=== PATIENT | female | born 1975 | race African-American/Black ===

== ENCOUNTER 2021-11-10 07:37 | Emergency (ER) | payer SELFPAY ==
[2021-11-10 09:04] LABS: SARS-COV-2 RT PCR NEGATIVE (NEGATIVE)
--- NOTE | 2021-11-10 09:11 | ER ---
Nurse's Notes [facility] Name: Maria Pappas Age: 46 yrs Sex: Female : 1975 Arrival Date: 11/10/2021 Time: 07:38 Bed 20 Private MD: Diagnosis: Acute upper respiratory infection, unspecified Presentation: 11/10 08:00 Chief complaint: Patient states: "Patient complain of body aches, chills all over for ag7 the last four days". Coronavirus screen: Client denies travel out of the [place] in the last 14 days. chills, cough unrelated to allergies, muscle pain, Client presents with at least one sign or symptom that may indicate coronavirus-19. Ebola Screen: No symptoms or risks identified at this time. Initial Sepsis Screen: Does the patient meet any 2 criteria? No. Patient's initial sepsis screen is negative. Does the patient have a suspected source of infection? No. Patient's initial sepsis screen is negative. Risk Assessment: Do you want to hurt yourself or someone else? Patient reports no desire to harm self or others. Onset of symptoms was November 06, 2021. 08:00 Method Of Arrival: Ambulatory ag7 08:00 Acuity: MARIO 4 ag7 Historical: - Allergies: 08:09 No Known Allergies; ag7 - Home Meds: 08:09 None [Active]; ag7 - PMHx: 08:09 None; ag7 - PSHx: 08:09 Cholecystectomy; ag7 - Immunization history:: Adult Immunizations up to date, Client reports receiving the 2nd dose of the Covid vaccine, Flu vaccine is not up to date. It has been more than one year since last vaccine. - Social history:: Smoking status: . Screenin:40 Abuse screen: Denies threats or abuse. Nutritional screening: No deficits noted. ag7 Tuberculosis screening: No symptoms or risk factors identified. Fall Risk None identified. Assessment: 08:11 General: Appears in no apparent distress. Behavior is calm, cooperative, appropriate ag7 for age, Reports chills for >3 days. Pain: Complains of pain in chest, abdomen, right arm, left arm, right leg, left leg, back of left arm, back of right arm, posterior chest, back of left leg, back of right leg and back Pain does not radiate. Pain currently is 8 out of 10 on a pain scale. Quality of pain is described as aching, Pain began 4 days Is continuous, Alleviated by nothing. Neuro: Level of Consciousness is awake, alert, obeys commands, Oriented to person, place, time, situation, Appropriate for age. Cardiovascular: Heart tones S1 S2 present. Respiratory: Airway is patent Breath sounds are clear bilaterally. EENT: Eyes are tearing on outer aspect of conjuctiva of right eye, iris of right eye, inner aspect of conjuctiva of right eye, outer aspect of conjuctiva of left eye, iris of left eye and inner aspect of conjunctiva of left eye Nares are clear with drainage noted Oral mucosa is moist. Good dentition noted. Throat is reddened Reports nasal congestion since 4days nasal discharge Patient reports "green color mucus from mouth". Vital Signs: 08:00 BP 141 / 77; Pulse 99 MON; Resp 16; Temp 98.5; Pulse Ox 99% on R/A; Weight 83.91 kg; ag7 Height 5 ft. 9 in. (175.26 cm); Pain 8/10; 09:42 BP 111 / 65; Pulse 93; Pulse Ox 100% on R/A; ag7 08:00 Body Mass Index 27.32 (83.91 kg, 175.26 cm) ag7 ED Course: 07:38 Patient arrived in ED. am2 07:40 [facility] oz 07:40 Lexa Barakat DO is Attending Physician. kb 08:00 Doris Lang, RN is Primary Nurse. ag7 08:04 Triage completed. ag7 08:09 COVID-19/FLU A+B (Document "Date of Onset" if Symptomatic) Sent. ag7 08:10 Arm band placed on right wrist. ag7 09:41 No provider procedures requiring assistance completed. ag7 09:41 Patient did not have IV access during this emergency room visit. ag7 09:41 Patient has correct armband on for positive identification. Bed in low position. Call ag7 light in reach. Administered Medications: No medications were administered Outcome: 09:10 Discharge ordered by . oz 09:41 Discharged to home ag7 09:41 Condition: stable 09:41 Discharge instructions given to patient. 09:43 Patient left the ED. ag7 Signatures: Cherri Conway FNP-C TREE WRAPPER-Ckb Daysi Egan am2 Doris Lang, RN RN ag7
--- NOTE | 2021-11-10 09:11 | EDPHYS ---
Physician Documentation [facility] Name: Maria Pappas Age: 46 yrs Sex: Female : 1975 Arrival Date: 11/10/2021 Time: 07:38 Bed 20 Private MD: ED Physician Lexa Barakat HPI: 11/10 08:20 This 46 yrs old Black Female presents to ER via Ambulatory with complaints of Cough, kb chills, bodyaches. 08:20 The patient or guardian reports cough, that is intermittent, described as mild, flu kb symptoms, myalgias. Onset: The symptoms/episode began/occurred 4 day(s) ago. Severity of symptoms: At their worst the symptoms were mild, in the emergency department the symptoms are unchanged. Modifying factors: The symptoms are alleviated by nothing, the symptoms are aggravated by nothing. Associated signs and symptoms: Pertinent positives: rhinorrhea, Pertinent negatives: chest pain, diarrhea, ear ache, fever, nausea, sore throat, vomiting. The patient has not experienced similar symptoms in the past. The patient has not recently seen a physician. Pt reports cough, runny nose, chills and bodyaches that started 4 days ago. States family member at home has the flu. Historical: - Allergies: 08:09 No Known Allergies; ag7 - Home Meds: 08:09 None [Active]; ag7 - PMHx: 08:09 None; ag7 - PSHx: 08:09 Cholecystectomy; ag7 - Immunization history:: Adult Immunizations up to date, Client reports receiving the 2nd dose of the Covid vaccine, Flu vaccine is not up to date. It has been more than one year since last vaccine. - Social history:: Smoking status: . ROS: 08:19 Cardiovascular: Negative for chest pain, palpitations, and edema. kb 08:19 Constitutional: Positive for body aches, chills, malaise, Negative for fatigue, fever, poor PO intake, weight loss. 08:19 ENT: Positive for rhinorrhea. 08:19 Respiratory: Positive for cough, Negative for dyspnea on exertion, hemoptysis, orthopnea, pleurisy, shortness of breath, sputum production, wheezing. 08:19 All other systems are negative. Exam: 08:19 Constitutional: This is a well developed, well nourished patient who is awake, alert, kb and in no acute distress. Head/Face: Normocephalic, atraumatic. ENT: Moist Mucous membranes Cardiovascular: Regular rate and rhythm with a normal S1 and S2. No gallops, murmurs, or rubs. No pulse deficits. Respiratory: Respirations even and unlabored. No increased work of breathing. Talking in full sentences Skin: Warm, dry with normal turgor. Normal color. MS/ Extremity: Pulses equal, no cyanosis. Neurovascular intact. Full, normal range of motion. Neuro: Awake and alert, GCS 15, oriented to person, place, time, and situation. Moves all extremities. Normal gait. Psych: Awake, alert, with orientation to person, place and time. Behavior, mood, and affect are within normal limits. Vital Signs: 08:00 BP 141 / 77; Pulse 99 MON; Resp 16; Temp 98.5; Pulse Ox 99% on R/A; Weight 83.91 kg; ag7 Height 5 ft. 9 in. (175.26 cm); Pain 8/10; 09:42 BP 111 / 65; Pulse 93; Pulse Ox 100% on R/A; ag7 08:00 Body Mass Index 27.32 (83.91 kg, 175.26 cm) ag7 MDM: 07:41 Patient medically screened. kb 08:19 Data reviewed: vital signs, nurses notes. Data interpreted: Pulse oximetry: on room air kb is 99 %. Interpretation: normal. 09:10 Counseling: I had a detailed discussion with the patient and/or guardian regarding: the kb historical points, exam findings, and any diagnostic results supporting the discharge/admit diagnosis, lab results, the need for outpatient follow up, a family practitioner, to return to the emergency department if symptoms worsen or persist or if there are any questions or concerns that arise at home. 11/10 07:41 Order name: COVID-19/FLU A+B (Document "Date of Onset" if Symptomatic); Complete Time: kb 09:10 Administered Medications: No medications were administered Disposition: 07:53 Attestation: The patient's history, exam findings, diagnostics, and a summary of any ms3 interventions or procedures was reviewed in detail with Cherri ZELAYA 46-year-old female presents for chills and myalgias began last night. On exam patient is alert and oriented x4, in no apparent distress. Heart rate rhythm are regular without murmurs rubs or gallops. Lungs clear to auscultation bilaterally. Abdomen nontender palpation. Skin is without rashes or diaphoresis. Discussed case with Yuliet Conway, nurse practitioner, and agree with plan.. 19:28 Co-signature as Attending Physician, Lexa Barakat DO I agree with the assessment and ms3 plan of care. Disposition Summary: 11/10/21 09:10 Discharge Ordered Location: Home kb Condition: Stable kb Diagnosis - Acute upper respiratory infection, unspecified kb Followup: kb - With: Emergency Department - When: As needed - Reason: Worsening of condition Followup: kb - With: Private Physician - When: 2 - 3 days - Reason: Recheck today's complaints, Continuance of care, Re-evaluation by your physician Discharge Instructions: - Discharge Summary Sheet kb - Upper Respiratory Infection, Adult, [id number] kb - Viral Respiratory Infection, [id number] kb Forms: - Medication Reconciliation Form kb - Thank You Letter kb - Antibiotic Education kb - Prescription Opioid Use kb - Work release form jd3 Signatures: Dispatcher [employer] EDMS Cherri Conway, TORSTEN-C G[employer]ING [employer]AGE WORKER-Lexa Reyes DO DO ms3 Doris Lang, RN RN ag7 Corrections: (The following items were deleted from the chart) 20:07 19:28 Co-signature as Attending PhysicianCherri ms3 ms3
[2021-11-10 10:40] VITALS: TEMP 98.5
[2021-11-10 10:46] VITALS: BP 111/65; O2SAT 100
== END 2021-11-10 09:43 | disposition home or self-care (01) ==
LOC: ER 07:37
DX: J06.9 Acute upper respiratory infection, unspecified (principal); Z20.822 Contact with and (suspected) exposure to COVID-19
CPT/HCPCS: 0240U; 99283